=== PATIENT | female | born 1955 | race African-American/Black ===

== ENCOUNTER → 2016-07-13 | Outpatient (CLI) | payer BC ==
[~2016-07-13] MED LIST: TRAM-10 PO
--- NOTE | 2016-07-14 10:57 | MAMMOGRAPHY REPORT ---
BILATERAL DIGITAL SCREENING MAMMOGRAM TOMOSYNTHESIS WITH CAD: 07/13/2016 CLINICAL HISTORY: Routine screening. Patient has no complaints. TECHNIQUE: Breast tomosynthesis in addition to standard 2D mammography was performed. Current study was also evaluated with a Computer Aided Detection (CAD) system. COMPARISON: Comparison is made to exams dated: 05/30/2015 mammogram, 12/12/2013 mammogram, 11/29/2012 mammogram, 11/24/2011 mammogram, 11/06/2010 mammogram, and 11/05/2009 mammogram - [facility] enter. BREAST COMPOSITION: There are scattered areas of fibroglandular density in both breasts. FINDINGS: The parenchymal pattern is similar to prior mammograms. There are a few benign rim calci fications in the breasts. No suspicious mass, architectural distortion or cluster of suspicious yoli rocalcifications is seen. IMPRESSION: ACR BI-RADS CATEGORY 1: NEGATIVE There is no mammographic evidence of malignancy. A 1 year screening mammogram is recommended. The p atient will receive written notification of the results. Approximately 10% of breast cancers are not detected with mammography. A negative mammographic repor t should not delay biopsy if a clinically suggestive mass is present. Bonnie Pemberton M.D. ay/:07/13/2016 18:23:43 Hardware Design Engineer: Radha GRAY)(M), [facility] letter sent: Normal 1/2 BI-RADS Code: ACR BI-RADS Category 1: Negative
== END | disposition home or self-care (01) ==
LOC: C.MAMM 14:08
PROVIDERS: ATTEND Family Medicine
DX: Z12.31 Encounter for screening mammogram for malignant neoplasm of breast (principal)

== ENCOUNTER → 2016-07-23 | Outpatient (CLI) | payer BC ==
--- NOTE | 2016-07-23 10:04 | DIAGNOSTIC IMAGING REPORT ---
PELVIC ULTRASOUND, TRANSABDOMINAL AND TRANSVAGINAL HISTORY: PELVIC PAIN COMPARISON: Pelvic ultrasound 04/07/2006. FINDINGS: Uterus: The uterus is retroflexed and measures 7.7 x 3.7 x 4.5 cm. Multiple heterogeneous masses within the uterus which demonstrate partial shadowing. Dominant mass along the right side the uterus measures 3.1 x 2.9 x 2.7 cm. These have increased in size. These are consistent with intramural fibroids. Endometrial stripe: 3 mm in thickness. Right ovary: Obscured by overlying bowel gas. Left ovary: Obscured by overlying bowel gas. Miscellaneous:No pelvic free fluid. IMPRESSION: 1. Multiple uterine masses which have increased in size from the 2006 examination with the largest measuring 3.1 cm. These favor fibroids. 2. The ovaries were obscured by overlying bowel gas. Electronically signed by: Mayito Pena M.D. 07/23/2016 10:03 AM Dictated Date/Time: 07/23/2016 9:59 AM
== END | disposition home or self-care (01) ==
LOC: C.PATH 08:17
PROVIDERS: ATTEND Family Medicine
DX: R10.2 Pelvic and perineal pain (principal); R19.09 Other intra-abdominal and pelvic swelling, mass and lump

== ENCOUNTER → 2016-08-10 | Outpatient (CLI) | payer BC ==
--- NOTE | 2016-08-10 08:30 | DIAGNOSTIC IMAGING REPORT ---
RIGHT FOREARM ULTRASOUND CLINICAL HISTORY: Right forearm lump. COMPARISON STUDY: MRI of the right forearm June 04, 2014. FINDINGS: Note is made of an 8 x 3.2 x 4.5 cm isoechoic lesion within the distal right forearm which corresponds to the lesion shown on MRI of June 04, 2014. This may have mildly increased in size although comparison is difficult given differences in technique. This suggests a fatty lesion. No additional masses are identified. IMPRESSION: 8 x 3.2 x 4.5 cm right forearm mass. Apparent slight increase in size since exam of June 04, 2014 although comparison is difficult given differences in technique. Given apparent increase in size, surgical consultation is recommended. A repeat MRI of the right forearm with and without contrast could also be obtained. Electronically signed by: Julian Thornton M.D. 08/10/2016 8:29 AM Dictated Date/Time: 08/10/2016 8:22 AM
== END | disposition home or self-care (01) ==
LOC: C.ULTR 07:36
PROVIDERS: ATTEND Family Medicine
DX: R22.31 Localized swelling, mass and lump, right upper limb (principal)

== ENCOUNTER → 2016-08-20 | Outpatient (CLI) | payer BC ==
--- NOTE | 2016-08-20 08:23 | DIAGNOSTIC IMAGING REPORT ---
MRI right forearm RIGHT UPPER EXT NON JOINT COMBO CLINICAL HISTORY: LOCALIZED SWELLING Right lipoma TECHNIQUE: MRI multi axial acquisition COMPARISON STUDY: 06/04/2014 FINDINGS: Slight increase in size of an intramuscular lipoma of the distal forearm. Dimension is currently are 8 x 4 cm. It is well-circumscribed. Several faint peripheral septations are present. It is similar in configuration compared to the prior study with the latest subtle increase in size. No new or additional findings are noted. Signal characteristics of the radius and ulna are unremarkable. IMPRESSION: Pre-existing intramuscular lipoma slightly increased in volume from the prior study. Electronically signed by: Aime Villasenor M.D. 08/20/2016 8:21 AM Dictated Date/Time: 08/20/2016 8:13 AM
== END | disposition home or self-care (01) ==
LOC: C.MRI 06:29
PROVIDERS: ATTEND Family Medicine
DX: D17.21 Benign lipomatous neoplasm of skin and subcutaneous tissue of right arm (principal)

== ENCOUNTER → 2017-07-19 | Outpatient (CLI) | payer OTHER ==
--- NOTE | 2017-07-19 13:58 | MAMMOGRAPHY REPORT ---
BILATERAL DIGITAL SCREENING MAMMOGRAM TOMOSYNTHESIS WITH CAD: 07/19/2017 CLINICAL HISTORY: Routine screening. Patient has no complaints. TECHNIQUE: Breast tomosynthesis in addition to standard 2D mammography was performed. Current study was also evaluated with a Computer Aided Detection (CAD) system. COMPARISON: Comparison is made to exams dated: 07/13/2016 mammogram, 05/30/2015 mammogram, 12/12/2013 m ammogram, 11/29/2012 mammogram, 11/24/2011 mammogram, and 11/06/2010 mammogram - [facility] nter. BREAST COMPOSITION: There are scattered areas of fibroglandular density in both breasts. FINDINGS: No suspicious masses, calcifications, or areas of architectural distortion are noted in ei ther breast. There has been no significant interval change compared to prior exams. IMPRESSION: ACR BI-RADS CATEGORY 1: NEGATIVE There is no mammographic evidence of malignancy. A 1 year screening mammogram is recommended. The pa tient will receive written notification of the results. Approximately 10% of breast cancers are not detected with mammography. A negative mammographic report should not delay biopsy if a clinically suggestive mass is present. Angela Hartman M.D. /:07/19/2017 07:51:43 Health And Safety Consultant: Radha Cooper, [facility] letter sent: Normal 1/2 BI-RADS Code: ACR BI-RADS Category 1: Negative
== END | disposition home or self-care (01) ==
LOC: C.MAMM 07:35
PROVIDERS: ATTEND Family Medicine
DX: Z12.31 Encounter for screening mammogram for malignant neoplasm of breast (principal)

== ENCOUNTER → 2017-08-06 | Outpatient (CLI) | payer OTHER ==
[~2017-08-06] MED LIST changes: +GADAVIST IV PRN
--- NOTE | 2017-08-06 09:28 | DIAGNOSTIC IMAGING REPORT ---
MRI OF THE RIGHT FOREARM WITH AND WITHOUT CONTRAST CLINICAL HISTORY: Lipoma. Increasing size of right arm lump. COMPARISON STUDY: Right forearm MRI June 04, 2014 and August 20, 2016. TECHNIQUE: Utilizing a 1.5 Jennifer magnet and dedicated coil, multiplanar, multiecho imaging of the right forearm was performed pre and postcontrast administration. Injection of 6.5 cc of Gadavist IV was uneventful. FINDINGS: Note is again made of a fatty lesion within the radial side of the mid right forearm that measures 9.2 x 4.2 x 3.8 cm. On exam of August 20, 2016, this lesion measured 8 x 4.2 x 3.3 cm. This lesion appears to be intramuscular in location along the radial side of the digitorum muscles and splaying the bellies of the extensor carpi radialis and brachialis muscles. This wraps around the radial side of the mid shaft of the radius. No bony invasion is noted. No additional masses are present. Thin septa are noted within this lesion without definitive enhancement. No nodular component is noted. IMPRESSION: Mild interval increase in size of the fat-containing mid right forearm lesion since MRI of August 20, 2016. No change in thin septa within this lesion without definitive enhancement. The MRI appearance favors a intermuscular lipoma. Given interval growth, surgical consultation is recommended given the much less likely possibility of an atypical lipoma. Electronically signed by: Julian Thornton M.D. 08/06/2017 9:26 AM Dictated Date/Time: 08/06/2017 8:16 AM
== END | disposition home or self-care (01) ==
LOC: C.MRI 06:51
PROVIDERS: ATTEND Family Medicine
DX: D17.9 Benign lipomatous neoplasm, unspecified (principal)

== ENCOUNTER 2021-08-28 09:23 | Observation (INO) ==
--- NOTE | 2021-08-08 14:59 | PAT Medication Instructions ---
Medication Instructions Date of Service August 08, 2021 Home Medications Medication Instructions Recorded albuterol sulfate 90 mcg/actuation 2 puffs INH Q6H PRN #8.5 gm 12/22/18 aerosol inhaler (ProAir HFA) albuterol sulfate 90 mcg/actuation aerosol inhaler (ProAir HFA) 2 puffs INH Q6H PRN biotin 5 mg capsule 5 mg PO QAM magnesium 200 mg tablet 200 mg PO QAM multivitamin 1 tab PO QAM DO NOT take the morning of surgery biotin 5 mg capsule 5 mg PO QAM magnesium 200 mg tablet 200 mg PO QAM multivitamin 1 tab PO QAM Take morning of surgery With a small sip of water, OTHERWISE NOTHING TO EAT OR DRINK AFTER MIDNIGHT: albuterol sulfate 90 mcg/actuation aerosol inhaler (ProAir HFA) 2 puffs INH Q6H PRN (use if needed; please bring rescue inhaler with you to hospital day of surgery if possible) Take evening before surgery albuterol sulfate 90 mcg/actuation aerosol inhaler (ProAir HFA) 2 puffs INH Q6H PRN (if needed) Other Notes If you have any questions please call us at [phone] or [phone] or [phone] or [phone]
--- NOTE | 2021-08-13 09:48 | Anesthesiology Consultation ---
Date of Service August 13, 2021 Assessment & Plan (1) Encounter for pre-operative examination: Chart Review Chart Review: Acceptable Risk for Surgery (pending cardiac evaluation and preop Covid testing results ) and Patient seen in Pre Admission Testing -Due to chest tightness- patient referred for cardio optimization- cardio appt scheduled with [facility] on 08/20/21 at 0830am. Pt aware Pseudocholinesterase deficiency Per PAT appt on 08/13/21, patient denies any recent travel or large group activities. Wears mask when required. No known Covid positive exposures or Covid related symptoms. No known Covid infection in the past 90 days. Pt is fully vaccinated for Covid. Preop Covid testing scheduled 08/26/21= will await results. Educated on importance of self quarantining, social distancing and wearing mask in public for the patient one week prior to surgery and after Covid testing done Consults Requested cardiac (mid sternal chest tightness ) History Surgery Operation Date: 08/28/21 08:50 Proposed Procedures p Left Total Hip Arthroplasty - Antonio Miller MD Height/Weight Height: 5 ft 5 in Weight: 66.9 kg Allergies Allergy/AdvReac Type Severity Reaction Status Date / Time succinylcholine Allergy Severe Pseudocholinesterase Verified 08/11/21 16:05 deficiency (see commends) apple Allergy Unknown Tongue Verified 08/11/21 16:05 itchy, "feels weird" shrimp AdvReac Unknown Tongue Verified 08/11/21 16:05 itchy, "feels weird" Medications Home Medications Medication Instructions Recorded Confirmed Last Taken albuterol sulfate 90 mcg/actuation 2 puffs INH Q6H PRN #8.5 gm 12/22/18 08/08/21 Unknown aerosol inhaler (ProAir HFA) biotin 5 mg capsule 5 mg PO QAM 08/08/21 08/08/21 Unknown magnesium 200 mg tablet 200 mg PO QAM 08/08/21 08/08/21 Unknown multivitamin 1 tab PO QAM 08/08/21 08/08/21 Unknown Past Medical History Medical History Chronic back pain Depression GERD (gastroesophageal reflux disease) Well controlled and issues History of anemia History of anxiety History of asthma Breathing stable History of depression History of high cholesterol 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- Tubal 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 (1998; [facility]) - was "tested" Exercise / Class Metabolic Activity III < 4 Walking/Shop/Light housework (no chest pain but SOB with long distances flat surface ambulation - activiity limited due to hip pain ) Past Family History Family History Sister Colon cancer Diabetes Hypertension Father Cardiac disorder Daughter Family history of pseudocholinesterase deficiency PT'S 3 DAUGHTERS WERE TESTED-1 TESTED HAVING PSUEDOCHOLINESTERASE DEFICIENCY Past Surgical History Surgical History H/O colonoscopy History of esophagogastroduodenoscopy (EGD) History of tubal ligation Previous back surgery S/P RADIOFREQUENCY ABLATION Past Anesthesia History No Family Hx of Anesthesia Complications (with exception to sister- unsure of specifics ; daughter with pseudocholinesterase deficency ) and Pseudocholinesterase Deficiency (no other issues with anesthesia per patient ) History of PONV No Hx of PONV and No Hx of Motion Sickness Social History Smoking Status: Never smoker Do You Dip or Chew Tobacco: No Hx Alcohol Use: No Hx Substance Use: No Review of Systems Chest tightness - ongoing x months - no radiation. Can occur at night when l aying down. No nausea or SOB. Mild chronic cough- feels secondary to allergies Patient denies, shortness of breath at rest, wheezing, palpitations. No hx of seizures, stroke, ND, apnea/snoring. No hx of blood clots or blood transfusions Physical Exam Vital Signs VITALS BP 131/78 P 64 TEMP 98.4 SP02 97% RESP 16 Constitutional no acute distress ENMT Mouth: no TMJ clicking Thyromental Distance: > or= 3.5 Finger Breadths (3.5) Mallampati Class: I Neck neck extension not limited Respiratory normal respiratory effort; no respiratory distress Auscultation: lungs clear to auscultation bilaterally; no wheezes Cardiovascular Rate/Rhythm: regular rate and regular rhythm Heart Sounds: no murmur Vessels: no carotid bruit Musculoskeletal Spine: + pain with cervical ROM (mild ) Extremities: extremities normal to inspection Psychiatric Orientation: alert Lab Results Anesthesia Preop Results Results Anesthesia Widget: WBC 4.15 K/uL (4.8-10.8) L 08/13/21 Hgb 12.7 g/dL (12.0-16.0) 08/13/21 Hct 38.2 % (37-47) 08/13/21 Plt 277 K/uL (130-400) 08/13/21 Na 140 mmol/L (136-145) 08/13/21 K 3.9 mmol/L (3.5-5.1) 08/13/21 Cl 107 mmol/L (98-107) 08/13/21 CO2 27 mmol/L (21-32) 08/13/21 BUN 14 mg/dl (6-23) 08/13/21 Creat 0.82 mg/dl (0.6-1.2) 08/13/21 Glucose Level 91 mg/dl (70-99(Fasting)) 08/13/21 PT 11.0 Seconds (9.0-12.0) 08/13/21 PTT 30.0 Seconds (21.0-31.0) 08/13/21 INR 1.0 (0.9-1.1) 08/13/21 HA1c 5.9 % (4.5-5.6) H 08/13/21 Urine Color Yellow 08/13/21 Urine Appearance Clear (Clear) 08/13/21 Urine pH 7.0 (4.5-7.5) 08/13/21 Urine Specific [place] 1.020 (1.000-1.030) 08/13/21 Urine Protein Negative (Negative) 08/13/21 Urine Glucose (UA) Negative (Negative) 08/13/21 Urine Ketones Negative (Negative) 08/13/21 Urine Blood Negative (Negative) 08/13/21 Urine Nitrite Negative (Negative) 08/13/21 Urine Bilirubin Negative (Negative) 08/13/21 Urine Urobilinogen Negative (Negative) 08/13/21 Urine Leukocyte Esterase Negative (Negative) 08/13/21 Blood Type O Positive 08/13/21 Antibody Screen NEGATIVE 08/13/21 Testing Electrocardiogram Date: 08/13/21 Findings: + NSR @ (62bpm ) Normal EKG per cardio Chest X-Ray Date: 08/13/21 Findings: + NAD Stress Test Date: 05/31/18 Type: exercise (ECHO) Resting EF: 60-65% Resting LV Function: normal Resting RWMA: + none Normal exercise ECHO without evidence of inducible ischemia. MPHR is 105%. 7.80 METS achieved. Hypertensive response to exercise Grade I DD. Right ventricular systolic pressure is normal.
--- NOTE | 2021-08-13 16:13 | History & Physical Report ---
Date of Service August 13, 2021 Assessment & Plan (1) Osteoarthritis of left hip: Plan: PRE-OP Diagnosis: Left hip osteoarthritis Planned Procedure: Left total hip arthroplasty Plan: Patient is scheduled to undergo this procedure at the [facility] with a 23-hour observation admission on August with Dr. Antonio Miller. Risks and complications of the procedure such as: Infection, bleeding, pain, scarring, nerve or blood vessel damage, weakness, wound problems, stiffness, incomplete relief of symptoms, hardware failure, hardware loosening, wear, fracture, tendon or ligament injury, dislocation, leg length inequality, blood clots, embolism, heart attack, stroke and were explained the patient and her visit today. Informed consent to perform the procedure was obtained. Patient also understands risks of proceeding with surgical intervention during the COVID-19 pandemic. Currently she is asymptomatic and understands that she will need to be tested prior to surgery. Patient states that she met with her primary care provider's physician physician assistant certified Brie Lira recently and was cleared for surgical intervention for her hip arthritis. Patient states she is scheduled to meet with anesthesia later this morning and while there she will obtain a CBC with differential, complete metabolic panel, PT/INR, blood type and screen, urinalysis, urine culture and sensitivity, EKG, hemoglobin A1c and a nasal culture for MRSA. During today's visit we discussed total hip precautions and reviewed the total hip packet. I provided her with an order to obtain a walker. I also recommended that she purchase a shower chair, raised toilet seat and a hip kit. We have the patient set up with [facility] for in-home therapy for the first 2 weeks postoperatively we also have her scheduled to start outpatient physical therapy in our PT clinic at the 2-week postoperative bridger. Patient states she has a handicap placard for her vehicle already. We discussed antibiotic use after total joint replacement surgery when she sees her dentist. We discussed lectures offered by [facility] in regards to joint replacement surgery via Zoom. We talked about discharge planning from the hospital. I advised her that I would provide her with prescriptions for narcotic pain medication, and anti-inflammatory and I would like her to be on an 81 mg aspirin for the first 30 days postoperatively for blood clot prevention. Patient has her 2-week postoperative follow-up with myself on September 12 at 3:45 PM. She has questions or concerns that should arise prior to her surgery, she will contact the clinic. History of Present Illness Chief Complaint: Chief Complaint: Bilateral hip pain (left greater than right) Primary Care Provider: Andrew Murillo MD History of Present Illness (including history relevant to procedure): This 65-year-old female presents the clinic today for preoperative history and physical. Patient states that she has had pain in her left hip for many years. She has had extensive workup of her back and seeing Pain Management. More recently, she saw physicians in our practice who diagnosed her with hip arthritis and gave her corticosteroid injection into both hips. This helped both hips, although it has worn off on the left side. She feels the pain in her buttock. She gets sharp pains down her leg. 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 It affects her ability to sit, stand, or walk any significant distance. Review Of Systems: 12 point review of systems is performed is unremarkable except for those things stated in the HPI and past medical history. Past Medical History: Problems: Osteoarthritis of left hip Lumbar radiculopathy Epigastric pain Dyspepsia Hair loss Asthma Neoplasm of uncertain behavior of skin Chronic LBP Lipoma Mass of right forearm SCOLIOSIS Leukopenia Lactose intolerance Tubular adenoma Pseudocholinesterase deficiency Hyperlipidemia Past history of procedure VITAMIN D DEFICIENCY Procedure History Procedure Procedure Date Comments Tubal Ligation Excision of lipoma 07/05/2020 - right forearm Mammogram 06/07/2020 - there is no evidence of malignancy . a 1 yr screening mammogram is recommended Upper GI endoscopy 06/06/2020 - Pathology demonstrated no significant pathologic change in the duodenum. There was reactive gastropathy with intestinal metaplasia in the antrum biopsy. Midesophagus biopsies demonstrated no significant pathologic changes or evidence of increased eosinophils, dysplasia, or malignancy. - - normal second portion of the duodenum. biopsied.- gastric mucosal variant. biopsied. - z-line regular, 36 cm from the incisors.- mild schatzki ring. dilated - esophageal mucosal changes suggestive of eosinophilic esophagitis. biospied Upper GI endoscopy 06/06/2020 - Impression: Normal second portion of the duodenum. Biopsied.Gastric mucosal variant. Biopsied.Z-line regular, 36 cm from the incisorsMild Schatzki ring. Dilated.Esophageal mucosal changes suggestive of eosinophilic esophagitis. Biopsied. CXR - Chest X-ray 11/16/2019 - No active disease in the chest. Mammogram - screening 11/10/2018 - There is no mammographic evidence of malignancy. A 1 year screening mammogram is recommended. The patient will receive written notification of the results. Colonoscopy 07/18/2018 - Impression: The entire examined colon is normal.No specimens collected.Recommendations: Repeat colonoscopy in 5 years for surveillance. Colonoscopy 07/18/2018 - The entire examined colon is normal. No specimens collected. Repeat in 5 years. Echocardiogram 05/30/2018 - Left ventricular systolic function is normal.Grade I diastolic dysfunctionRight ventricular systolic pressure is normal. Cervical spine X-ray 04/19/2018 - Impression: No acute cervical spine fracture.Multilevel degenerative disc disease and facet arthrosis most pronounced at C6-C7 and C7-T1. Cervical spine X-ray 10/06/2017 - 1. No fractures or subluxations identified.2. Moderate multilevel dengerative change. MRI of forearm 08/06/2017 - right with and without Mild interval increased in size of the fat-contaning mid right forarm lesion since MRI of August 20, 2016. No change in thin septa within this lesion without definitive enhancement. The MRI appearance favors a intermuscular lipma. Given interval growth, surgical consultaion is recommended given the much less likely possiblity of an atypical lipoma. Mammogram - screening 07/19/2017 - Impression: There is no mammographic evience of malignancy. A 1 year screening mammogram is recommended. The patient will receive written notification of the results. MRI of forearm right upper extremity 08/20/2016 - Pre-existing intramuscular lipoma slightly increased in volume from the prior study. Ultrasound scan of soft tissues of arm 08/10/2016 - 8x3.2x4.5 cm right forearm mass. Apparent slight increase in size since exam o 06/04/14, although comparison is difficult given differences in technique. Given apparent increase in size, surgical consultation is recommended. A repeat MRI of the right orearm with and without contrast could also be obtained. Punch biopsy of skin 07/30/2016 - x 2 sites US EXAM PELVIC COMPLETE 07/23/2016 - 1. Multiple uterine masses which have increased in size from the 2006 examination with the largest measuring 3.1 cm. These favor fibroids. 2. The ovaries were obscured by overlying bowel gas. Fine biopsy needle-Right arm 07/23/2016 - Right arm, FNA:Nondiagn ostic specimenSee comment Mammogram - screening 07/13/2016 - There is no mammographic evidence of malignancy. A 1 year screening mammogram is recommended. the patient will receive written notification of the results. CXR - Chest X-ray 05/27/2015 - No active disease in the chest. Stress echocardiography test interpretation 06/26/2014 - Negative exercise EKG for ischemia. Negative stress echocardiogram for ischemia CXR - Chest X-ray 06/22/2014 - No acute cardiopulmonary findings MRI of forearm 06/04/2014 - Right forearm MRI---A 6.8 x 3.9 x2.9 cm predominantly fat containing lesion along the radial side of the mid right forearm. The most likely represents a lipoma. There are thin wispy areas of enhancement within this leasion without a definite enhancing soft tissue mass. 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 However, if this is increasing in size or is painful then surgical resection is recommended for further evaluation. XRAY Right arm 05/25/2014 - There is no acute bony abnormality seen in right forearmSuspect a large fat containing lesion measuring up to 8cm in the volar aspect of the mid to distal forearm. This likely reflects a large lipoma. Correlation with clinical findings will be essential. If this painful then surgical consultation is advised. CXR - Chest X-ray 04/25/2014 - no active disease. The left midlung infiltrate described previously resulved CXR - Chest X-ray 03/07/2014 - Left Mid lung pulmonary airspace opacities. Given the clinical history, this likely reflects a pneumonitis. Films subsequent with the treatment are recommended in F/U. Mammogram - screening 12/12/2013 - 1 yr screening recommended Colonoscopy 04/03/2013 - normal colonoscopy 04/2008 Allergies and Sensitivities: Allergy Not found in Search(pseudocholinesterase deficiency) Family history: Heart disease, cancer, diabetes, hypertension and arthritis Social history: Completely unremarkable Current Home Meds: (Last Updated 08/13 08:08) biotin 1 tab PO Daily multivitamin 1 tab PO Daily Initial Wt: 08/13 67.3 kg 148 lb Allergies Allergy/AdvReac Type Severity Reaction Status Date / Time succinylcholine Allergy Severe Pseudocholinesterase Verified 08/11/21 16:05 deficiency (see commends) apple Allergy Unknown Tongue Verified 08/11/21 16:05 itchy, "feels weird" shrimp AdvReac Unknown Tongue Verified 08/11/21 16:05 itchy, "feels weird" Home Medications Medication Instructions Recorded Confirmed Type albuterol sulfate 90 mcg/actuation 2 puffs INH Q6H PRN #8.5 gm 12/22/18 08/08/21 Rx aerosol inhaler (ProAir HFA) biotin 5 mg capsule 5 mg PO QAM 08/08/21 08/08/21 History magnesium 200 mg tablet 200 mg PO QAM 08/08/21 08/08/21 History multivitamin 1 tab PO QAM 08/08/21 08/08/21 History Past Med/Surg History Medical History Chronic back pain Depression GERD (gastroesophageal reflux disease) Well controlled and issues History of anemia History of anxiety History of asthma Breathing stable History of depression History of high cholesterol 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- Tubal 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 (1998; [facility]) - was "tested" Surgical History H/O colonoscopy History of esophagogastroduodenoscopy (EGD) History of tubal ligation Previous back surgery S/P RADIOFREQUENCY ABLATION Family History Sister Colon cancer Diabetes Hypertension Father Cardiac disorder Daughter Family history of pseudocholinesterase deficiency PT'S 3 DAUGHTERS WERE TESTED-1 TESTED HAVING PSUEDOCHOLINESTERASE DEFICIENCY Social History Smoking Status: Never smoker Second Hand Exposure: Yes ( A CHILD); Hx Alcohol Use: No Hx Substance Use: No Preferred Language: German Communication Ability: Effective Visual Impairment: No Limitations Hearing Ability: Normal Cna Ltc Required: No Beliefs That Will Affect Care: None marital status: Current Living Situation: Alone current occupational status: employed 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 Extract movements are intact Throat: Deferred due to COVID-19 precautions Cardiac: Regular rate and rhythm no murmurs or gallops appreciated Lungs: Clear to auscultation throughout no wheezing, rales or rhonchi Abdomen: Nonobese, nondistended, nontender with NABS Extremities: Left hip; Flexion is limited to about 100 degrees. External rotation to 35 degrees. Internal rotation to 0 degrees. Positive impingement- scour tests. Positive Stinchfield test. Patient experiences tenderness to palpation of the groin and posterior lateral hip. She is neurovascularly intact in the left lower extremity but does walk with a slight antalgic gait. Neuro: Cranial nerves II through XII are intact no motor or sensory deficit Skin: Normal in appearance with no open skin areas of discharge Results & Data ([facility]) Diagnostic Findings Studies (relevant to the procedure): X-rays done include standing AP pelvis, false profile, and cross-table lateral of the left hip. These demonstrate bone -on-bone arthritis affecting the anterior superior joint space on the left.
[~2021-08-28 09:23] MED LIST changes: +ACETAMINOPHEN 500 MG TAB PO SCH; +BUPIVACAINE 0.5 % 5 MG/1 ML MPF 30ML VIAL ONE; +CeleBREX 200 MG CAP PO SCH; +FAMOTIDINE 20 MG TAB PO SCH; -GADAVIST IV PRN; +LR 500ML BOLUS, THEN 15ML/HR IV SCH; +LR 60ML/HR IV SCH; +ROPIVACAINE 0.5% HCL/PF 150 MG, BUPIVACAINE 0.75% MPF 20 ML, EPINEPHrine 0.15 MG, Ketor... INFIL SCH; +Scopolamine 1 MG TDSY TD SCH; -TRAM-10 PO; +TRANEXAMIC ACID 1,000 MG **IV Intra-op IV SCH; +TRANEXAMIC ACID 1,000 MG **IV Pre-op IV SCH; +ceFAZolin 2000MG 2,000 MG/15 ML SYR IV SCH; +dexAMETHasone 4 MG TAB PO SCH; +traMADol HCL 50 MG TABLET PO SCH
[2021-08-28] MEDS ORDERED: MIDAZOLAM HCL 1 MG/ML 2ML VIAL ONE ×2 (10:16)
[2021-08-28] MEDS ORDERED: ePHEDrine sulfate 50 MG/ML AMP IV PRN (10:16)
[2021-08-28] MEDS ORDERED: ONDANSETRON INJ 2 MG/ML 2 ML VIAL IV PRN ×2 (10:16→13:48)
[2021-08-28] MEDS ORDERED: ATROPINE SULFATE 0.1 MG/ML 10ML SYR IV PRN (10:16)
[2021-08-28] MEDS ORDERED: fentaNYL citrate 100 MCG/2 ML VIAL IV PRN (10:16)
--- NOTE | 2021-08-28 11:14 | History & Physical Bridge Note ---
Date of Service August 28, 2021 History & Physical Bridge Note I have examined the patient, reviewed the History & Physical and in the interval since the performance of the History & Physical I have noted the following changes of clinical significance: no changes noted
[2021-08-28] MEDS ORDERED: ORTHO JOINT ANESTHETIC ONE (11:41)
[2021-08-28] MEDS ORDERED: PROPOFOL IV EMULSION 10 MG/ML 20 ML VIAL IV ONE ×2 (12:05→13:30)
[2021-08-28] MEDS ORDERED: ONDANSETRON INJ 2 MG/ML 2 ML VIAL ONE (12:05)
[2021-08-28] MEDS ORDERED: LIDOCAINE 2% 2 ML VIAL/AMP(20MG/ML) INFIL ONE (12:05)
[2021-08-28] MEDS ORDERED: ePHEDrine sulfate 50 MG/ML SYR ONE (12:11)
--- NOTE | 2021-08-28 13:41 | Operative Report ---
Post Operative Report Pre & Post Diagnosis Operation Date: 08/28/21 11:30 Pre-Op Diagnosis: Left Hip Osteoarthritis Post-Op Diagnosis: Left Hip Osteoarthritis I identified the patient and participated in the time-out.: Yes Procedure Operation Date: 08/28/21 11:30 Actual Procedures p Left Total Hip Arthroplasty(Left) - Antonio Miller MD Surgeon Antonio Miller MD Auto Service Instructor ELIZABETH Fleming PA-C and DIANA Serrano1. No resident or fellow was available. Estimated Blood Loss 100 Findings Consistent with Post-Op Diagnosis Specimens Left femoral head Anesthesia Type Spinal MAC Complications none Disposition Disposition: Recovery Room Indications 65-year-old female with left hip arthritis refractory to conservative management. X-rays demonstrate fexy-df-yeav disease. I had a long discussion with her about the risks and benefits of surgery, alternatives, and expected outcomes. After reviewing all these she elected proceed with surgery. All questions were answered. Informed consent was signed. Description of Procedure Patient was identified in the preoperative holding area and the surgical site, left hip, was marked. A spinal anesthetic was placed, then the patient was brought back to the main operating room, placed in the operating table and moved into the lateral decubitus position. Axillary roll was placed. All bony prominences were padded. Perioperative antibiotics and tranexamic acid 1 gram IV were administered. Operative extremity was prepped and draped in the normal sterile fashion. Prior to incision a multidisciplinary timeout was called. All in the room were in agreement. We began by making an incision for a posterior approach to the hip. We dissected down through subcutaneous tissues to the level of the fascia. The fascia was incised in line with the incision. Charnley bow was placed. The trochanteric bursa was excised. The piriformis and short external rotators were dissected off the posterior aspect of the hip. A box cut was made in the capsule. The femoral head was dislocated. The femoral neck cut was made at our preoperative template. The acetabulum was then exposed. The labrum was sharply excised. Contents of the cotyloid fossa were removed with electrocautery. We then began reaming at a size 8 mm less than our preoperative template. We reamed up by [address] the way up to a size 52 mm cup. This gave us good bleeding cancellus bone circumferentially. The acetabulum was then irrigated out and dried. The real Osmond Gription cup was then impacted down into position with 45 degrees of lateral opening and 25 degrees of anteversion. A single cancellous bone screw was placed up into the ilium. Excellent fixation was obtained. An Altrx polyethylene liner for a 32 mm femoral head was then impacted into the shell. The locking mechanism was checked to ensure that it had engaged which it had. Next we turned our attention to the femur. The lateral neck was removed with a box osteotome. Intramedullary guide was used followed by the lateralizing reamer. We then reamed up to a size 4 Meigs stem. We then broached all the way up to a size 3. We began trialing with a standard offset neck and a +1.5 head. Hip was reduced. Leg lengths were symmetric. The hip was stable in extension and external rotation, and stable in the sleeper position. At 90 degrees of hip flexion the hip could be internally rotated 75 degrees before levering out of the cup. I was very happy with the stability exam. Therefore the hip was dislocated and the femoral trial was removed. The femoral canal was irrigated and dried. The real size 3 standard offset Meigs femoral stem was opened up. This was impacted down into position. It sat about 1 mm above the femoral trial. Therefore the 32 mm ceramic femoral head with a +1 mm offset was opened up and gently impacted down onto the trunnion. The hip was atraumatically reduced. Another 1 gram of IV tranexamic acid was started prior to closure. The wound was irrigated out with sterile Betadine solution. The periarticular injection cocktail was then placed. The short external rotators, piriformis, and posterior capsule were repaired through drill holes in the greater trochanter using #2 Vicryl. The fascia was run with a looped #1 PDS. The subcutaneous layer was closed with #1 PDS. The dermal layer was closed with 2-0 Vicryl. Zip line was used for the skin followed by a Silverlon dressing. A compressive dressing was then placed. The patient was then rolled supine. Leg lengths were rechecked and were symmetric. An abduction pillow was placed. Sedation was lifted and the patient was transferred to recovery room in stable condition. Summary of implants: Depuy Osmond Gription Acetabular Shell Sector Cup, 52 mm outer diameter Osmond Cancellous bone screw, 6.5 x 35 mm Osmond Altrx Polyethylene Acetabular Liner, Neutral, with a 32 mm inner diameter DePuy Meigs Femoral stem with Porocoat, 12/14 taper, size 3 standard offset 32 mm ceramic femoral head with +1 offset Postoperative course: Patient will be admitted to the hospital from the recovery room. Patient will be weightbearing as tolerated with posterior hip precautions. Aspirin for DVT prophylaxis I attest to the content of the Intraoperative Record and any orders documented therein. Any exceptions are noted below.
[2021-08-28] MEDS ORDERED: oxyCODONE HCL IR 5 MG TAB (IMMEDIATE RELEASE) PO PRN (13:48)
[2021-08-28] MEDS ORDERED: ALUMINUM/MAGNESIUM SUSP 30 ML UDC PO PRN (13:48)
[2021-08-28] MEDS ORDERED: diphenhydrAMINE 50 MG/ML VIAL IV PRN (13:48)
[2021-08-28] MEDS ORDERED: NALOXONE HCL 0.4 MG/1 ML VIAL/CARP IV PRN (13:48)
[2021-08-28] MEDS ORDERED: bisacodyL 10 MG SUPP PR PRN (13:48)
[2021-08-28] MEDS ORDERED: MAGNESIUM HYDROXIDE SUSP 30 ML UDC PO PRN (13:48)
[2021-08-28] MEDS ORDERED: METOCLOPRAMIDE HCL INJ 5 MG/ML 2 ML VIAL IV PRN (13:48)
--- NOTE | 2021-08-28 13:48 | Operative Report ---
Post Operative Report Pre & Post Diagnosis Operation Date: 08/28/21 11:30 Pre-Op Diagnosis: Left Hip Osteoarthritis Post-Op Diagnosis: Left Hip Osteoarthritis I identified the patient and participated in the time-out.: Yes Procedure Operation Date: 08/28/21 11:30 Actual Procedures p Left Total Hip Arthroplasty(Left) - Antonio Miller MD Surgeon Antonio Miller MD Meeting Facilitator ELIZABETH Fleming PA-C and DIANA Serrano1. No resident or fellow was available. Estimated Blood Loss 100 Findings Consistent with Post-Op Diagnosis Specimens femoral head Description of Procedure I was present during the entire case assisting with positioning, prepping, draping, wound retraction, wound closure, dressing and abduction pillow placement. No fellow present. Please see Dr. Miller procedure note for specifics. I attest to the content of the Intraoperative Record and any orders documented therein. Any exceptions are noted below.
[2021-08-28] MEDS ORDERED: ALBUTEROL HFA 8 GM INHALER INH PRN (14:10)
--- NOTE | 2021-08-28 14:23 | XRay Report ---
XR pelvis 1-2V routine CLINICAL HISTORY: Post Surgical. Status post left hip replacement COMPARISON STUDY: 08/13/2021 TECHNIQUE: [A single AP radiograph was obtained. FINDINGS: The patient is status post total hip replacement on the left. There is no evidence for an acute fract ure. The prosthetic components are in anatomic alignment. The right hip joint space is maintained. Th e SI joints are intact bilaterally. The remaining visualized bones of the pelvis are intact. No focal soft tissue abnormalities identified. IMPRESSION: 1. Status post left total hip replacement. ACT 112: Negative or not required by law. Electronically signed by: Andres Arce M.D. 08/28/2021 2:22 PM
--- NOTE | 2021-08-28 14:50 | Anesthesiology Progress Note ---
Date of Service August 28, 2021 Anesthesia Post Procedure Vital Signs Vital Signs: Temp Pulse Resp BP Pulse Ox 08/28/21 14:05 36.4 C L 63 16 111/67 100 08/28/21 13:55 59 L 18 112/66 100 08/28/21 13:48 36.1 C L 71 18 104/69 100 08/28/21 10:26 37.2 C 70 18 164/94 H 99 Pain Intensity Left Hip: Pain Intensity: 9 Transfer of Care Handoff Completed per policy Notes Mental Status: alert / awake / arousable Patient Amnestic to Procedure: Yes Nausea / Vomiting: adequately controlled Pain: adequately controlled Airway Patency, RR, SpO2: stable & adequate BP & HR: stable & adequate Hydration State: stable & adequate Anesthetic Complications: no major complications apparent
[2021-08-28] MEDS: Scopolamine CHECK PATCH PLACEMENT SCH (15:19)
[2021-08-28] MEDS: KETOROLAC TROMETHAMINE 15 MG/ML VIAL IV SCH ×2 (15:57→23:41)
[2021-08-28] MEDS: SODIUM CHLORIDE 0.9% 1000ML 1,000 ML IV SCH (15:58)
[2021-08-28] MEDS: ACETAMINOPHEN 500 MG TAB PO SCH (17:36)
[2021-08-28] MEDS ORDERED: TRANEXAMIC ACID / 0.7% NACL 1,000 MG/100 ML BAG IV SCH (20:00)
[2021-08-28] MEDS: ceFAZolin 2000MG 2,000 MG/15 ML SYR IV SCH (20:12)
[2021-08-28] MEDS: DOCUSATE SODIUM 100 MG CAP PO SCH (20:16)
[2021-08-28] MEDS: ASPIRIN 81 MG ECTAB PO SCH (20:17)
[2021-08-28] MEDS ORDERED: SENNA 8.6 MG TAB PO SCH (21:00)
[2021-08-29] MEDS: Scopolamine CHECK PATCH PLACEMENT SCH ×2 (00:54→07:58)
[2021-08-29] MEDS: SODIUM CHLORIDE 0.9% 1000ML 1,000 ML IV SCH (03:33)
[2021-08-29] MEDS: ceFAZolin 2000MG 2,000 MG/15 ML SYR IV SCH (03:33)
[2021-08-29] MEDS: KETOROLAC TROMETHAMINE 15 MG/ML VIAL IV SCH ×2 (05:38→11:18)
[2021-08-29] MEDS: ACETAMINOPHEN 500 MG TAB PO SCH ×2 (05:38→11:19)
[2021-08-29 07:34] LABS: Hematocrit (blood only) 34.1 % (37-47); Hemoglobin 11.1 g/dL (12.0-16.0); Immature Granulocytes # (auto) 0.03 K/uL (0.00-0.02); Immature Granulocytes % (auto) 0.3 %; Lymphocytes # (auto) 1.57 K/uL (1.2-3.4); Lymphocytes % (auto) 14.5 %; Mean Corpuscular Hemoglobin 30.6 pg (25-34); Mean Corpuscular Hgb Conc 32.6 g/dL (32-36); Mean Corpuscular Volume 93.9 fL (80-100); Mean Platelet Volume 11.2 fL (7.4-10.4); Monocytes # (auto) 0.95 K/uL (0.11-0.59); Monocytes % (auto) 8.8 %; Neutrophils # (auto) 8.26 K/uL (1.4-6.5); Neutrophils % (auto) 76.4 %; Platelet Count 256 K/uL (130-400); RDW Coefficient of Variation 13.3 % (11.5-14.5); Red Blood Count 3.63 M/uL (4.2-5.4); White Blood Count 10.81 K/uL (4.8-10.8)
[2021-08-29] MEDS: DOCUSATE SODIUM 100 MG CAP PO SCH (07:58)
[2021-08-29] MEDS: ASPIRIN 81 MG ECTAB PO SCH (07:58)
[2021-08-29 07:59] LABS: BUN Creatinine Ratio 19.1 (10-20); Calcium 8.7 mg/dl (8.5-10.1); Creatinine Clr Calc Pharmacy 56.7 ml/min; Est GFR (African American) 78.8 ml/min; Potassium 3.8 mmol/L (3.5-5.1)
[2021-08-29] MEDS ORDERED: dexAMETHasone 4 MG TAB PO SCH (08:00)
[2021-08-29] MEDS ORDERED: MULTIVITAMIN TAB PO SCH (09:00)
[2021-08-29] MEDS ORDERED: MAGNESIUM OXIDE 400 MG TAB PO SCH (09:00)
[2021-08-29] MEDS ORDERED: NON-FORMULARY MEDICATION (Biotin 5 mg Capsule) PO SCH (09:00)
[2021-08-29] MEDS ORDERED: NON-FORMULARY MEDICATION (Multivitamin Tablet) PO SCH (09:00)
--- NOTE | 2021-08-29 09:07 | Orthopedic Progress Note ---
Date of Service August 29, 2021 Assessment & Plan (1) S/P total left hip arthroplasty: Plan: Total hip precautions reviewed Weightbearing as tolerated with walker assistance DVT prophylaxis with aspirin and RICHARD stockings Pain control with p.o. medications Abduction pillow use x6 weeks postoperatively Keep Silverlon dressing in place. Ice with easy wrap Plan is for in-home physical therapy for the first 2 weeks postoperatively. Follow-up at [facility] orthopedics as previously scheduled With questions contact our clinic at [phone] Admission and Anticipated Discharge Date Admission Date: August 28, 2021 Subjective This 65-year-old female is day 1 status post left total hip arthroplasty. She states she is doing very well. She states that her pain is gone completely. She denies chest pain, shortness of breath, fever, chills, sweats, lethargy, numbness or tingling in her left lower extremity. She also denies Nausea, vomiting, diarrhea or difficulty voiding. She states that she has been able to transition from her bed to her bedside chair. Review of Systems Review of Systems: All systems reviewed & are unremarkable except as noted in Subjective Physical Exam Physical Exam: Left hip: Outer dressing was removed. Silverlon is intact clean and dry. Patient is able to perform an active straight leg raise test. She is able to actively dorsi and plantarflex her foot without difficulty. Quad strength is 3 out of 5. Patient experiences no pain with logroll testing. She has no pain with light passive internal or external hip rotation. Patient is neurovascularly intact in the left lower extremity. Results & Data ([facility]) Vital Signs (Past 12 Hours) Vital Signs Temp Pulse Pulse Pulse Pulse Resp BP 08/29/21 08:24 36.5 C 60 18 08/29/21 05:30 49 L 47 L 84/54 L 08/29/21 03:46 36.6 C 51 L 16 95/52 L 08/28/21 22:39 36.4 C L 45 L 16 BP Pulse Ox 08/29/21 08:24 112/58 L 100 08/29/21 05:30 89/41 L 08/29/21 03:46 98 08/28/21 22:39 96/58 L 97 Diagnostic Findings Laboratory Results WBC 10.81 K/uL (4.8-10.8) H 08/29/21 06:50 RBC 3.63 M/uL (4.2-5.4) L 08/29/21 06:50 Hgb 11.1 g/dL (12.0-16.0) L 08/29/21 06:50 Hct 34.1 % (37-47) L 08/29/21 06:50 MCV 93.9 fL (80-100) 08/29/21 06:50 MCH 30.6 pg (25-34) 08/29/21 06:50 MCHC 32.6 g/dL (32-36) 08/29/21 06:50 RDW Std Deviation 46.0 fL (36.4-46.3) 08/29/21 06:50 RDW Coeff of Lenny 13.3 % (11.5-14.5) 08/29/21 06:50 Plt Count 256 K/uL (130-400) 08/29/21 06:50 MPV 11.2 fL (7.4-10.4) H 08/29/21 06:50 Immature Gran % (Auto) 0.3 % 08/29/21 06:50 Neut % (Auto) 76.4 % 08/29/21 06:50 Lymph % (Auto) 14.5 % 08/29/21 06:50 Overton % (Auto) 8.8 % 08/29/21 06:50 Eos % (Auto) 0.0 % 08/29/21 06:50 Baso % (Auto) 0.0 % 08/29/21 06:50 Neut # (Auto) 8.26 K/uL (1.4-6.5) H 08/29/21 06:50 Lymph # (Auto) 1.57 K/uL (1.2-3.4) 08/29/21 06:50 Overton # (Auto) 0.95 K/uL (0.11-0.59) H 08/29/21 06:50 Eos # (Auto) 0.00 K/uL (0-0.5) 08/29/21 06:50 Baso # (Auto) 0.00 K/uL (0-0.2) 08/29/21 06:50 Immature Gran # (Auto) 0.03 K/uL (0.00-0.02) H 08/29/21 06:50 Sodium 138 mmol/L (136-145) 08/29/21 06:50 Potassium 3.8 mmol/L (3.5-5.1) 08/29/21 06:50 Chloride 108 mmol/L (98-107) H 08/29/21 06:50 Carbon Dioxide 25 mmol/L (21-32) 08/29/21 06:50 Anion Gap 5 (3-11) 08/29/21 06:50 BUN 17 mg/dl (6-23) 08/29/21 06:50 Creatinine 0.89 mg/dl (0.6-1.2) 08/29/21 06:50 Est Cr Clr Drug Dosing 56.7 ml/min 08/29/21 06:50 Est GFR ( Amer) 78.8 ml/min 08/29/21 06:50 Est GFR (Non-Af Amer) 68.0 ml/min 08/29/21 06:50 BUN/Creatinine Ratio 19.1 (10-20) 08/29/21 06:50 Glucose 127 mg/dl (70-99(Fasting)) H 08/29/21 06:50 Calcium 8.7 mg/dl (8.5-10.1) 08/29/21 06:50 SARS-CoV-2, RNA, NAAT NEGATIVE (NEGATIVE) 08/28/21 Unknown Impressions Pelvis X-Ray 08/28/21 13:48 XR pelvis 1-2V routine CLINICAL HISTORY: Post Surgical. Status post left hip replacement COMPARISON STUDY: 08/13/2021 TECHNIQUE: [A single AP radiograph was obtained. FINDINGS: The patient is status post total hip replacement on the left. There is no evidence for an acute fracture. The prosthetic components are in anatomic alignment. The right hip joint space is maintained. The SI joints are intact bilaterally. The remaining visualized bones of the pelvis are intact. No focal soft tissue abnormalities identified. IMPRESSION: 1. Status post left total hip replacement. ACT 112: Negative or not required by law. Electronically signed by: Andres Arce M.D. 08/28/2021 2:22 PM
--- NOTE | 2021-08-29 09:15 | Discharge Summary ---
Date of Service August 29, 2021 Admission HPI Per Admitting Provider History of Present Illness (including history relevant to procedure): This 65-year-old female presents the clinic today for preoperative history and physical. Patient states that she has had pain in her left hip for many years. She has had extensive workup of her back and seeing Pain Management. More recently, she saw physicians in our practice who diagnosed her with hip arthritis and gave her corticosteroid injection into both hips. This helped both hips, although it has worn off on the left side. She feels the pain in her buttock. She gets sharp pains down her leg. 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 It affects her ability to sit, stand, or walk any significant distance. Review Of Systems: 12 point review of systems is performed is unremarkable except for those things stated in the HPI and past medical history. Past Medical History: Problems: Osteoarthritis of left hip Lumbar radiculopathy Epigastric pain Dyspepsia Hair loss Asthma Neoplasm of uncertain behavior of skin Chronic LBP Lipoma Mass of right forearm SCOLIOSIS Leukopenia Lactose intolerance Tubular adenoma Pseudocholinesterase deficiency Hyperlipidemia Past history of procedure VITAMIN D DEFICIENCY Procedure History Procedure Procedure Date Comments Tubal Ligation Excision of lipoma 07/05/2020 - right forearm Mammogram 06/07/2020 - there is no evidence of malignancy . a 1 yr screening mammogram is recommended Upper GI endoscopy 06/06/2020 - Pathology demonstrated no significant pathologic change in the duodenum. There was reactive gastropathy with intestinal metaplasia in the antrum biopsy. Midesophagus biopsies demonstrated no significant pathologic changes or evidence of increased eosinophils, dysplasia, or malignancy. - - normal second portion of the duodenum. biopsied.- gastric mucosal variant. biopsied. - z-line regular, 36 cm from the incisors.- mild schatzki ring. dilated - esophageal mucosal changes suggestive of eosinophilic esophagitis. b iospied Upper GI endoscopy 06/06/2020 - Impression: Normal second portion of the duodenum. Biopsied.Gastric mucosal variant. Biopsied.Z-line regular, 36 cm from the incisorsMild Schatzki ring. Dilated.Esophageal mucosal changes suggestive of eosinophilic esophagitis. Biopsied. CXR - Chest X-ray 11/16/2019 - No active disease in the chest. Mammogram - screening 11/10/2018 - There is no mammographic evidence of malignancy. A 1 year screening mammogram is recommended. The patient will receive written notification of the results. Colonoscopy 07/18/2018 - Impression: The entire examined colon is normal.No specimens collected.Recommendations: Repeat colonoscopy in 5 years for surveillance. Colonoscopy 07/18/2018 - The entire examined colon is normal. No specimens collected. Repeat in 5 years. Echocardiogram 05/30/2018 - Left ventricular systolic function is normal.Grade I diastolic dysfunctionRight ventricular systolic pressure is normal. Cervical spine X-ray 04/19/2018 - Impression: No acute cervical spine fracture.Multilevel degenerative disc disease and facet arthrosis most pronounced at C6-C7 and C7-T1. Cervical spine X-ray 10/06/2017 - 1. No fractures or subluxations identified.2. Moderate multilevel dengerative change. MRI of forearm 08/06/2017 - right with and without Mild interval increased in size of the fat-contaning mid right forarm lesion since MRI of August 20, 2016. No change in thin septa within this lesion without definitive enhancement. The MRI appearance favors a intermuscular lipma. Given interval growth, surgical consultaion is recommended given the much less likely possiblity of an atypical lipoma. Mammogram - screening 07/19/2017 - Impression: There is no mammographic evience of malignancy. A 1 year screening mammogram is recommended. The patient will receive written notification of the results. MRI of forearm right upper extremity 08/20/2016 - Pre-existing intramuscular lipoma slightly increased in volume from the prior study. Ultrasound scan of soft tissues of arm 08/10/2016 - 8x3.2x4.5 cm right forearm mass. Apparent slight increase in size since exam o 06/04/14, although comparison is difficult given differences in technique. Given apparent increase in size, surgical consultation is recommended. A repeat MRI of the right orearm with and without contrast could also be obtained. Punch biopsy of skin 07/30/2016 - x 2 sites US EXAM PELVIC COMPLETE 07/23/2016 - 1. Multiple uterine masses which have increased in size from the 2006 examination with the largest measuring 3.1 cm. These favor fibroids. 2. The ov diana were obscured by overlying bowel gas. Fine biopsy needle-Right arm 07/23/2016 - Right arm, FNA:Nondiagn ostic specimenSee comment Mammogram - screening 07/13/2016 - There is no mammographic evidence of malignancy. A 1 year screening mammogram is recommended. the patient will receive written notification of the results. CXR - Chest X-ray 05/27/2015 - No active disease in the chest. Stress echocardiography test interpretation 06/26/2014 - Negative exercise EKG for ischemia. Negative stress echocardiogram for ischemia CXR - Chest X-ray 06/22/2014 - No acute cardiopulmonary findings MRI of forearm 06/04/2014 - Right forearm MRI---A 6.8 x 3.9 x2.9 cm predominantly fat containing lesion along the radial side of the mid right forearm. The most likely represents a lipoma. There are thin wispy areas of enhancement within this leasion without a definite enhancing soft tissue mass. 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 However, if this is increasing in size or is painful then surgical resection is recommended for further evaluation. XRAY Right arm 05/25/2014 - There is no acute bony abnormality seen in right forearmSuspect a large fat containing lesion measuring up to 8cm in the volar aspect of the mid to distal forearm. This likely reflects a large lipoma. Correlation with clinical findings will be essential. If this painful then surgical consultation is advised. CXR - Chest X-ray 04/25/2014 - no active disease. The left midlung infiltrate described previously resulved CXR - Chest X-ray 03/07/2014 - Left Mid lung pulmonary airspace opacities. Given the clinical history, this likely reflects a pneumonitis. Films subsequent with the treatment are recommended in F/U. Mammogram - screening 12/12/2013 - 1 yr screening recommended Colonoscopy 04/03/2013 - normal colonoscopy 04/2008 Allergies and Sensitivities: Allergy Not found in Search(pseudocholinesterase deficiency) Family history: Heart disease, cancer, diabetes, hypertension and arthritis Social history: Completely unremarkable Current Home Meds: (Last Updated 08/13 08:08) biotin 1 tab PO Daily multivitamin 1 tab PO Daily Initial Wt: 08/13 67.3 kg 148 lb Admission Exam Per Admitting Provider Physical Exam: (relevant to the procedure, including heart and lung evaluation) General: Alert and oriented x3 with proper grooming and hygiene Eyes: Pupils are equal and reactive to light with accommodation. Extract movements are intact Throat: Deferred due to COVID-19 precautions Cardiac: Regular rate and rhythm no murmurs or gallops appreciated Lungs: Clear to auscultation throughout no wheezing, rales or rhonchi Abdomen: Nonobese, nondistended, nontender with NABS Extremities: Left hip; Flexion is limited to about 100 degrees. External rotation to 35 degrees. Internal rotation to 0 degrees. Positive impingement- scour tests. Positive Stinchfield test. Patient experiences tenderness to palpation of the groin and posterior lateral hip. She is neurovascularly intact in the left lower extremity but does walk with a slight antalgic gait. Neuro: Cranial nerves II through XII are intact no motor or sensory deficit Skin: Normal in appearance with no open skin areas of discharge Principal Diagnosis Left hip osteoarthritis Discharge Exam Left hip: Outer dressing was removed. Silverlon is intact clean and dry. Patient is able to perform an active straight leg raise test. She is able to actively dorsi and plantarflex her foot without difficulty. Quad strength is 3 out of 5. Patient experiences no pain with logroll testing. She has no pain with light passive internal or external hip rotation. Patient is neurovascularly intact in the left lower extremity. Discharge Data Allergies Allergy/AdvReac Type Severity Reaction Status Date / Time succinylcholine Allergy Severe Pseudocholinesterase Verified 08/28/21 09:57 deficiency (see commends) apple Allergy Unknown Tongue Verified 08/28/21 09:57 itchy, "feels weird" shrimp AdvReac Unknown Tongue Verified 08/28/21 09:57 itchy, "feels weird" Procedures Performed Operation Date: 08/28/21 11:30 Actual Procedures p Left Total Hip Arthroplasty(Left) - Antonio Miller MD Hospital Course (1) S/P total left hip arthroplasty: Patient had an uneventful overnight stay following total hip replacement. She states she is doing very well and her pain is very minimal. She is anxious to be discharged home later today. She is planning on doing in-home physical therapy. She states she is set up for her initial visit tomorrow. Total hip precautions reviewed Weightbearing as tolerated with walker assistance DVT prophylaxis with aspirin and RICHARD stockings Pain control with p.o. medications Abduction pillow use x6 weeks postoperatively Keep Silverlon dressing in place. Ice with easy wrap Plan is for in-home physical therapy for the first 2 weeks postoperatively. Follow-up at [facility] orthopedics as previously scheduled With questions contact our clinic at [phone] Total Time Total Time Spent Total Time Spent (In Minutes): 20 minutes Discharge Plan Discharge Items Patient Disposition: Home - Home Health Services Reason For Visit: Left Hip Osteoarthritis Discharge Diagnosis: Left Hip Osteoarthritis Activity: As commented below Lifting: None Bathing: Keep incision dry Bathing Comment: May shower tomorrow Sexual Activity: Wait until after follow-up appointment Exercise/Sports: Wait until after follow-up appointment Driving/Machine Use: No driving until cleared by orthopedic cast specialist Weightbearing: Left weightbearing Weightbearing Comment: as tolerated with walker assistance Non-emergency contact: Surgeon Call non-emergency contact if: you have any medication questions, your pain is not controlled, your temperature is above 101.5, your wound has increased drainage and your wound pain has increased Follow-up/Referrals: Andrew Murillo MD [Primary Care Provider] - Diet: Regular Addtl Attending Provider Instructions: Post-operative Instructions Dear Patient and Family/Friends, Before you are discharged from the hospital, it is important to know what to expect when you get home after surgery. To that end, we have created this sheet of discharge instructions which covers many commonly asked questions. Make sure you go through this sheet in its entirety with your nurse before you are discharged. Please note that we will go over the specifics of your surgery and recovery when you return for your first post-operative visit. Sincerely, Dr. Miller Medications 1. Oxycodone 5 mg: take 1-2 tabs every 4-6 hrs as needed for pain. A prescription for this medication will be sent to your pharmacy. 2. Diclofenac Sodium 75 mg: take 1 tab twice daily for 30 days post operatively. A prescription for this will also be sent to your pharmacy with 1 refill. 3. Aspirin 81 mg: take 1 tab twice daily for 30 days post operatively for blood clot prevention. Please purchase. 4. Extra Strength Tylenol 500 mg: take 2 tabs every 6-8 hours as needed for supplemental pain control. Please purchase. Pain Expect to be in a fair amount of pain after surgery. Remember, our goal is not to eliminate your pain, but to make it tolerable. It is a good idea to stay ahead of your pain by taking the medications you were prescribed once you get home. Typically, the pain starts improving 3-7 days after surgery. You should start weaning off the narcotic pain medication (oxycodone, hydrocodone, hydromorphone, morphine) as soon as your pain improves. Please call our office if your pain is not adequately controlled. Ice Ice your operative site at least 5 times a day for 15-30 minutes at a time. Make sure you have a thin cloth between the ice or cooling unit and your skin to prevent carrasquillo bite. This is especially important if you received a nerve block. Continue icing your operative site for the first 5-7 days after surgery, then as needed. Diet/Nausea/Vomiting Start by drinking clear liquids and eating crackers. If you can tolerate this, then you may resume your normal diet. If you feel nauseated or vomit, take Zofran/ondansetron (if prescribed). Please call our office if you have intractable nausea or vomiting, or, if after hours, you may go to the Emergency Room for help. Constipation Constipation is a common side effect of narcotic pain medication. If you have not had a bowel movement within 2 days after surgery, we recommend purchasing an over the counter laxative such as Milk of Magnesia, Dulcolax, or Miralax from a local pharmacy, and taking it as instructed. Call our clinic if any questions. Nerve block The anesthesia team sometimes places a nerve block to help with post-operative pain control. This results in significant numbness and inability to move the extremity. The nerve block usually wears off in 8-12 hours, but sometimes can last up to 24 hours. Please call our office if you are still unable to move your extremity after 24 hours, unless you received a pain pump to take home. Nerve blocks typically wear off quickly, so start taking pain medication as soon as you start feeling soreness near your surgical site. Weight bearing and Range of Motion. Do not bear any weight through your operative extremity immediately after surg lachelle. If you had upper extremity surgery, do not lift anything with that arm. If you are in a knee brace, keep it locked in place until your follow-up. We will discuss your weight bearing, range of motion, and lifting restrictions in detail at your first post-operative appointment. Continuous Passive Motion (CPM) Machine If you were prescribed a CPM machine, it will start after your first post-op erative appointment, at which time we will give you instructions on the range of motion settings and duration of treatment Physical therapy You will be given a prescription for physical therapy or occupational therapy at your first post-operative appointment. Typically, patients start therapy within 1 week of surgery Wound care and showering We will inspect your wound at your first post-operative visit, and may do a dressing change at that time. Most patients will be in a water-proof dressing that is removed 14 days after surgery. It is normal to see some dried blood on the dressing. Do not remove your dressing, paper strips or sutures yourself unless you are given permission. Showering is allowed the day after surgery. Do not scrub or remove any dressings. The wound should not be submerged underwater (i.e. in a bathtub or pool) until 4 weeks after surgery RICHARD stockings If you were given white stockings, these are to be worn at all times except to shower (on both legs) for the first 2 weeks after surgery. Driving You may not drive while taking narcotic pain medication or while in a cast, splint, sling or brace. You, the patient, need to make the final determination about when you are safe to drive, however, the earliest you may consider driving after surgery is below: Hand/Wrist/Elbow Surgery: 3 days Shoulder Surgery: 2 weeks Hip,/Knee/Ankle Surgery: 4 weeks Fracture repair: 6 weeks Return to Work Your return to work depends on what surgery was done and what type of work you do. Please bring any paperwork your employer needs completed to your first post-operative visit. Also, bring a description of your job duties, as this helps us to understand what risks you may face at work. Travel Avoid long distance travel (greater than 1 hour) in airplanes and cars for the first 6 weeks after surgery. If you must travel, you need to have a Doppler ultrasound done before you travel to rule out a blood clot in your legs. Follow-up You should have a follow-up appointment already scheduled 1-2 days after surgery. If not, please contact our office to make this appointment before you leave the hospital. When to call the office It is normal to have swelling and bruising in the limb that was operated on. This will improve with time. It is also normal to have fevers for the first 2 days after surgery. Reasons you should call your doctor include: Uncontrolled pain; Nausea, vomiting, or constipation that does not improve with medication; Fevers over 101.5, chills, sweats; Drainage or bleeding from the wound; Foul odor; Spreading areas of redness; Any other concerns Pending Studies at Discharge: No Stand-Alone Forms: My [facility] Medications and DC Order Prescriptions: New oxycodone 5 mg tablet 5 mg PO Q4H MDD Ongoing treatment Qty: 28 RF: 0 diclofenac sodium 75 mg tablet,delayed release (DR/EC) 75 mg PO BID 30 Days Qty: 60 RF: 1 Continued albuterol sulfate [ProAir HFA] 90 mcg/actuation HFA aerosol inhaler 2 puffs INH Q6H PRN (Reason: shortness of breath or wheezing) Qty: 8.5 RF: 0 multivitamin Tablet 1 tab PO QAM RF: 0 magnesium 200 mg Tablet 200 mg PO QAM RF: 0 biotin 5 mg Capsule 5 mg PO QAM RF: 0 Discharge Orders: Discharge Order (Routine); Ordered 08/29/21 Ordered By: Ashish Fleming Admission Data Admit Date/Time: 08/28/21 13:48 Attending Provider: Antonio Miller Admit Provider: Antonio Miller Primary Care Provider: Andrew Murillo
[2021-08-29] MEDS ORDERED: CeleBREX 200 MG CAP PO SCH (21:00)
== END 2021-08-29 12:43 | disposition home health service (06) ==
LOC: ASU 09:23 → 3E 09:23